=== PATIENT | female | born 1950 | race Caucasian/White ===

== ENCOUNTER 2017-05-15 09:45 | Outpatient (RCR) | payer OTHER | END 2017-05-26 | disposition home or self-care (01) | LOC: PTY 09:45 | DX: M25.562 Pain in left knee (principal) ==

== ENCOUNTER 2017-05-29 10:35 | Outpatient (RCR) | payer OTHER | END 2017-06-25 | disposition home or self-care (01) | LOC: PTY 10:35 | DX: M19.012 Primary osteoarthritis, left shoulder (principal) ==

== ENCOUNTER 2017-07-02 10:50 | Outpatient (RCR) | payer OTHER | END 2017-07-26 | disposition home or self-care (01) | LOC: PTY 10:50 | DX: M25.562 Pain in left knee (principal) ==